=== PATIENT | male | born 1985 | race Caucasian/White ===

== ENCOUNTER 2018-03-10 07:02 | Emergency (ER) | payer BC ==
--- NOTE | 2018-03-10 07:19 | UC ---
Headache HPI - HPI Summary HPI Summary: 32 year old male with headache. Pain 4 /10 Has had on and off for 4 days. No neuro deficits. Has had migraines as a child and having one now. Pain moderate. No vision changes but some mild photophobia. He missed work and needs note. Declined meds at this OV. No red flaga. Not worst MAGALLANES of life. No numbness in arms. Pain improved with 400 motrin this AM . - History Of Current Complaint Stated Complaint: HEADACHE x4 DAYS Time Seen by Provider: 03/10/18 07:17 Hx Obtained From: Patient, Family/[employer] Specialist Onset/Duration: Gradual Onset Onset Of Symptoms: Still Present Initially Headache Was: Moderate Timing: Constant Aggravating Factor(s): Nothing Allevating Factor(s): Nothing - Risk Factors SAH Risk Factors: Negative Meningitis Risk Factors: Negative - Allergies/Home Medications Allergies/Adverse Reactions: Allergies Allergy/AdvReac Type Severity Reaction Status Date / Time Penicillins Allergy Unknown Verified 03/10/18 07:19 Reaction Details PMH/Surg Hx/FS Hx/Imm Hx Previously Healthy: Yes Neurological History: Migraine - Surgical History Surgical History: None - Family History Known Family History: Negative: Seizure Disorder - Social History Occupation: Employed Full-time Alcohol Use: Weekly Substance Use Type: None Type: Smokeless Tobacco Amount Used/How Often: 1 can daily Review of Systems Constitutional: Negative Skin: Negative Eyes: Negative ENT: Negative Respiratory: Negative Cardiovascular: Negative Gastrointestinal: Negative Genitourinary: Negative Motor: Negative Neurovascular: Negative Musculoskeletal: Negative Neurological: Headache Psychological: Negative Is Patient Immunocompromised?: No All Other Systems Reviewed And Are Negative: Yes Physical Exam Triage Information Reviewed: Yes Appearance: Well-Appearing, No Pain Distress, Well-Nourished Vital Signs Reviewed: Yes Eye Exam: Normal ENT Exam: Normal Dental Exam: Normal Neck exam: Normal Neck: Positive: 1 Respiratory Exam: Normal Cardiovascular Exam: Normal Musculoskeletal Exam: Normal Neurological Exam: Normal Psychological Exam: Normal Skin Exam: Normal Headache Course/Dx - Course Course Of Treatment: he declined toradol. no red flags. f/u with PCP . will offer imitrex prn if OTC does not work. he has only taken motrin 400 mg PO x 1 since the MAGALLANES started. discussed excerdrin as well he can try. advised tobacco cessation . Go to ED if Sx worsen . - Differential Dx/Diagnosis Differential Diagnosis/HQI/PQRI: Migraine, Sinus Headache, Tension Headache, Viral Syndrome Provider Diagnoses: migraine Discharge - Sign-Out/Discharge Documenting (check all that apply): Patient Departure All imaging exams completed and their final reports reviewed: No Studies - Discharge Plan Condition: Good Disposition: HOME Prescriptions: SUMAtriptan TAB* [Imitrex TAB*] 50 mg PO SEE INSTRUCTIONS PRN #8 tab PRN Reason: Headache Patient Education Materials: Acute Headache (ED), Migraine Headache (ED) Forms: *Work Release Referrals: Aaron Angela MD [Primary Care Provider] - 4 Days - Billing Disposition and Condition Condition: GOOD Disposition: Home
[2018-03-10 07:22] VITALS: BP 117/82
== END 2018-03-10 08:13 | disposition home or self-care (01) ==
LOC: UCCORT 07:02
DX: G43.909 Migraine, unspecified, not intractable, without status migrainosus (principal); Z88.0 Allergy status to penicillin
CPT/HCPCS: 99202; G0463